=== PATIENT | male | born 1995 | race Caucasian/White ===

== ENCOUNTER 2016-11-06 10:41 | Emergency (ER) | payer OTHER ==
[2016-11-06] MEDS ORDERED: Ketorolac 60 MG/2 ML SDV IM ONE (11:05)
--- NOTE | 2016-11-06 11:10 | EDM.PDOC ---
ED HPI GENERAL MEDICAL PROBLEM - General Chief Complaint: ENT Problem Stated Complaint: THROAT HURTS Time Seen by Provider: 11/06/16 10:59 Source of Information: Reports: Patient History Limitations: Reports: No Limitations - History of Present Illness INITIAL COMMENTS - FREE TEXT/NARRATIVE: HISTORY AND PHYSICAL: History of present illness: Patient is a 21-year-old male who presents to the emergency room with complaints of sore throat, headache, and upset stomach for 3-4 days. Reports that he started having pain with swallowing which is progressively gotten worse. Has not tried any [id number] medications at this time. States he has had an upset stomach which has caused some mild diarrhea which started last night. Denies any abdominal pain or blood in his stools. Patient denies any visual changes, chest pain, shortness of breath, nausea, vomiting or fever/chills. Review of systems: As per history of present illness and below otherwise all systems reviewed and negative. Past medical history: As per history of present illness and as reviewed below otherwise noncontributory. Surgical history: As per history of present illness and as reviewed below otherwise noncontributory. Social history: No reported history of drug or alcohol abuse. Family history: As per history of present illness and as reviewed below otherwise noncontributory. Physical exam: Gen.: Nontoxic appearing 21-year-old male. Able to speak in full sentences without shortness of breath. Alert and oriented HEENT: Atraumatic, normocephalic, pupils equal and reactive, negative for conjunctival pallor or scleral icterus, mucous membranes moist, erythema noted to the posterior oropharynx with exudate bilateral tonsillar area, neck supple, nontender, trachea midline. Lungs: Clear to auscultation, breath sounds equal bilaterally, chest nontender. Heart: S1S2, regular rate and rhythm Abdomen: Soft, nondistended, nontender. Negative for masses or hepatosplenomegaly. Negative for costovertebral tenderness. Pelvis: Stable nontender. Genitourinary: Deferred. Rectal: Deferred. Extremities: Atraumatic, negative for cords or calf pain. Neurovascular unremarkable. Neuro: Awake, alert, oriented. Cranial nerves II through XII unremarkable. Cerebellum unremarkable. Motor and sensory unremarkable throughout. Exam nonfocal. Due to the physical exam findings patient's sore throat this likely strep pharyngitis. Give patient IV and Toradol for the general headache throat pain. Prescribe amoxicillin to treat the pharyngitis. Instructed patient to do warm saltwater gargles 2-3 times daily. Please take Tylenol and/or ibuprofen as needed for pain and fever control. I have advised him of reasons to return to the ED. Patient voices understanding and is agreeable to plan of care. Denies any further questions at this time. Diagnostics: N/A Therapeutics: IM Toradol Impression: Pharyngitis Plan: 1. Please take your antibiotics as prescribed. Amoxicillin 875 mg twice a day 10 days 2. Warm salt water gargle 2-3 times per day. Please take Tylenol as needed for pain and fever control. 3. Please drink plenty of fluids to prevent dehydration. 4. Follow-up with your primary care provider in the next 1-2 days. Return to the ED as needed as discussed. Definitive disposition and diagnosis as appropriate pending reevaluation and review of above. throat Pain Score (Numeric/FACES): 10 - Related Data Allergies Allergy/AdvReac Type Severity Reaction Status Date / Time No Known Allergies Allergy Verified 11/06/16 11:35 Home Meds: Home Meds Amoxicillin [Amoxil] 875 mg PO Q12HR 10 Days #20 tablet 11/06/16 [Rx] ED ROS ENT - Review of Systems Review Of Systems: ROS reveals no pertinent complaints other than HPI. ED EXAM, ENT - Physical Exam Exam: See Below (See dictation) Course - Vital Signs Last Recorded V/S: Last Vital Signs Temp 38.0 C 11/06/16 11:01 Pulse 86 11/06/16 11:01 Resp 18 11/06/16 11:01 BP 131/70 11/06/16 11:01 Pulse Ox 96 11/06/16 11:01 - Orders/Labs/Meds Meds: Medications Discontinued Medications Generic Name Dose Route Start Last Admin Trade Name Freq PRN Reason Stop Dose Admin Ketorolac Tromethamine 60 mg 11/06/16 11:05 11/06/16 11:41 Toradol IM 11/06/16 11:06 60 mg ONETIME ONE Administration Departure - Departure Time of Disposition: 11:48 Disposition: Home, Self-Care 01 Condition: Good Clinical Impression: Pharyngitis Qualifiers: Pharyngitis/tonsillitis etiology: unspecified etiology Qualified Code(s): J02.9 - Acute pharyngitis, unspecified - Discharge Information Prescriptions: Amoxicillin [Amoxil] 875 mg PO Q12HR 10 Days #20 tablet Referrals: PCP,None [Primary Care Provider] - Forms: ED Department Discharge Additional Instructions: My general discharge The following information is given to patients seen in the emergency department who are being discharged to home. This information is to outline your options for follow-up care. We provide all patients seen in our emergency department with a follow-up referral. The need for follow-up, as well as the timing and circumstances, are variable depending upon the specifics of your emergency department visit. If you don't have a primary care physician on staff, we will provide you with a referral. We always advise you to contact your personal physician following an emergency department visit to inform them of the circumstance of the visit and for follow-up with them and/or the need for any referrals to a consulting specialist. The emergency department will also refer you to a specialist when appropriate. This referral assures that you have the opportunity for follow-up care with a specialist. All of these measure are taken in an effort to provide you with optimal care, which includes your follow-up. Under all circumstances we always encourage you to contact your private physician who remains a resource for coordinating your care. When calling for follow-up care, please make the office aware that this follow-up is from your recent emergency room visit. If for any reason you are refused follow-up, please contact the [facility] Emergency Department at and asked to speak to the emergency department charge nurse. [facility] [address] [place] [id number] 1. Please take your antibiotics as prescribed. Amoxicillin 875 mg twice a day 10 days 2. Warm salt water gargle 2-3 times per day. Please take Tylenol as needed for pain and fever control. 3. Please drink plenty of fluids to prevent dehydration. 4. Follow-up with your primary care provider in the next 1-2 days. Return to the ED as needed as discussed.
[2016-11-06 12:24] VITALS: BP 145/66
== END 2016-11-06 12:20 | disposition home or self-care (01) ==
LOC: MW.ED 10:41
DX: J02.9 Acute pharyngitis, unspecified (principal)
CPT/HCPCS: 96372; 99283; J1885; 99282